=== PATIENT | male | born 1995 | race Two or more races ===

== ENCOUNTER 2018-09-05 08:09 | Emergency (ER) | payer MEDICAID ==
[~2018-09-05] VITALS: Ht 170.2 cm; Wt 50.3 kg
[2018-09-05 08:39] VITALS: BP 148/86
== END 2018-09-05 09:30 | disposition home or self-care (01) ==
LOC: ER 08:09
DX: G47.00 Insomnia, unspecified (principal); F41.9 Anxiety disorder, unspecified